=== PATIENT | male | born 1975 | race Caucasian/White ===

== ENCOUNTER → 2023-09-08 | Outpatient (CLI) | payer OTHER, SELFPAY ==
[2023-09-08 08:35] LABS: Absolute Lymphocyte Count 1.89 X10^3/uL (0.83-4.51); Absolute Neutrophil Count 2.7 X10^3/uL (2.0-7.7); Basophil# 0.05 X10^3/uL; Eosinophil# 0.11 X10^3/uL; Eosinophils% 2.1 % (0-5); Hematocrit 45.3 % (40-54); Hemoglobin 14.6 g/dL (13.0-16.5); Lymphocyte # 1.89 X10^3/ul (0.83-4.51); Lymphocyte % 36.7 % (19-41); Mean Corp Hgb Conc 32.2 g/dL (32-36); Mean Corpuscular Hgb 28.3 pg (27.0-32.0); Mean Corpuscular Volume 87.8 fL (80-94); Mean Platelet Vol. 9.8 fl (6.2-12.0); Monocyte# 0.37 X10^3/uL; Monocyte% 7.2 % (0-10); NRBC Flagged by Analyzer 0 % (0-5); Neutrophil % 52.4 % (47-70); Platelet Count 300 K/mm3 (150-450); RBC Distribution Width CV 11.9 % (11.6-14.6); RBC Distribution Width SD 38.6 fl (35.1-43.9); Red Blood Count 5.16 M/mm3 (4.6-6.2); White Blood Count 5.2 K/mm3 (4.4-11.0)
[2023-09-08 09:17] LABS: AST(SGOT) 22 U/L (15-37); Alanine Aminotransfer ALT/SGPT 27 U/L (16-61); Albumin, Serum 3.8 g/dL (3.2-5.0); Alkaline Phosphatase 71 U/L (45-117); Anion Gap 7 (5-15); BUN 15 mg/dL (7-18); BUN/Creat Ratio 12.5 RATIO (10-20); Calcium,Total 8.7 mg/dL (8.5-10.1); Chloride 109 mmol/L (98-107); Cholesterol 164 mg/dL (200); EST Glomerular Filtration Rate 69 mL/min (>60); Est Glom Filt Rate - Afr Amer 83 mL/min (>60); Globulin 3.7 g/dL (2.2-4.2); Glucose 91 mg/dL (74-106); High Density Lipoprotein 44 mg/dL; PSA,Total - Annual Screen 1.96 ng/mL (0.00-4.00); Potassium 4.1 mmol/L (3.5-5.1); Protein, Total 7.5 g/dL (6.4-8.2); Sodium Level 142 mmol/L (136-145); Triglycerides 110 mg/dL; Very Low Density Lipoprotein 22 mg/dL (5-40)
== END | disposition home or self-care (01) ==
LOC: LAB 07:42
PROVIDERS: PCP Family Medicine; Visit Provider Family Medicine
DX: Z00.00 Encounter for general adult medical examination without abnormal findings (principal); Z13.220 Encounter for screening for lipoid disorders; Z13.1 Encounter for screening for diabetes mellitus
CPT/HCPCS: 36415; 80053; 80061; 84153; 85025; G0103

== ENCOUNTER 2023-11-02 10:22 | Day surgery (SDC) | payer OTHER, SELFPAY ==
[2023-11-02] VITALS (8 sets, daily range): BP systolic 104–139; BP diastolic 69–99; PULSE 60–76; RESP 14–18; TEMP 36.1–36.4; O2SAT 94–100; BMI 26.2
[2023-11-02] MEDS: Lactated Ringers 1,000 ML 15 ML IV (10:30)
--- NOTE | 2023-11-02 11:12 | PCM.PRE.AN2 ---
ASA Classification* ASA Classification ASA Classification: 1 Assessment & Plan Anesthesia* Anesthesia Assessment Anesthesia Assessment: Discussed sedation and/or anesthesia options, risks, benefits, and alternatives with patient/parents/legal guardian/POA. Questions invited. The patient/parents/legal guardian/POA seems to understand and agrees to proceed with anesthesia plan. Reviewed the physical assessment, medical history, allergy history and patient home medications list prior to surgery/procedure/anesthetic and documented any changes. Performed airway and anesthesia risk assessments. Procedural Plan Procedural Plan:: Proceed w/ Anesthesia plan Anesthesia Type Anesthesia Type: MAC History Source History Obtained from:: Patient and Chart Anesthesia Focused Assessment* Temperature: 97.5 F Pulse Rate: 76 Blood Pressure: 139/99 Respiratory Rate: 16 Pulse Ox: 100 Oxygen Delivery Method: Room Air Airway Assessment Mouth opens: >3 cm Mallampati Score: II Teeth Condition: Intact Neck Range of motion (ROM): Full ROM Focused Labs Anesthesia Preop lab: CBC WBC 5.2 K/mm3 (4.4-11.0) 09/08/23 07:43 RBC 5.16 M/mm3 (4.6-6.2) 09/08/23 07:43 Hgb 14.6 g/dL (13.0-16.5) 09/08/23 07:43 Hct 45.3 % (40-54) 09/08/23 07:43 Plt Count 300 K/mm3 (150-450) 09/08/23 07:43 CHEMISTRY Potassium 4.1 mmol/L (3.5-5.1) 09/08/23 07:43 Sodium 142 mmol/L (136-145) 09/08/23 07:43 BUN 15 mg/dL (7-18) 09/08/23 07:43 Creatinine 1.20 mg/dL (0.70-1.30) 09/08/23 07:43 Glucose 91 mg/dL (74-106) 09/08/23 07:43 POC Glucose 103 mg/dL (70-110) 07/12/14 08:44 COAG Pre-Assessment Diagnosis/Proposed Procedure Planned Operative Procedure(s): CSCOPE OA Anesthesia History Anesthesia History - pediatric allergist: Anesthesia History - pediatric allergist Hx Hospitalization No 10/28/23 15:29 Any Problems With Anesthesia No 10/28/23 15:29 Cholinesterase deficiency No 10/28/23 15:29 You/Your Family Experience No 10/28/23 15:29 fever (hyperthermia) with Relationship Recent Exposure to Contagious No 11/02/23 10:48 Disease Does patient have nerve No 10/28/23 15:29 stimulator Patient instructed to have device shut off --Does patient have Pacemaker No 11/02/23 10:48 or ICD? When Was Last Pacemaker Check QUESTION #4 FULL TEXT: You/Your Family Experience fever (hyperthermia) with Anesthesia Last Oral Intake Last Oral intake: Last Oral Intake NPO since 00:00 11/02/23 10:48 Meds taken in AM with sips of water? Meds patient instructed to take am of surgery Any additional information?: Yes NPO since: 07:30 Meds patient instructed to take am of surgery: Prep was completed 730. PONV PONV - pediatric allergist: PONV - pediatric allergist Female No 10/28/23 15:29 HX of Motion Sickness No 10/28/23 15:29 HX of N/V After Surgery No 10/28/23 15:29 Non-Smoker Yes 10/28/23 15:29 Duration of Surgery greater No 10/28/23 15:29 than 60 minutes Number of Risk Factors 1 10/28/23 15:29 PONV Score Low Risk 10/28/23 15:29 Height & Weight Height & Weight: Anesthesia: Height & Weight Height 5 ft 11 in 11/02/23 10:48 Weight: 85.275 kg 11/02/23 10:48 Body Mass Index (BMI) 26.2 11/02/23 10:48 Respiratory Assessment Respiratory Assessment - pediatric allergist: Respiratory Tract Infection Hx - pediatric allergist Hx Respiratory Tract Infection No 10/28/23 15:29 STOP Sleep Apnea STOP Sleep Apnea - pediatric allergist: STOP Sleep Apnea - pediatric allergist Hx Hypertension No 10/28/23 15:29 Hx Sleep Apnea No 10/28/23 15:29 CPAP No 07/12/14 08:42 BIPAP No 07/10/14 16:38 Do you snore loudly (louder No 10/28/23 15:29 than talking or can be heard Do you often feel tired/ No 10/28/23 15:29 fatigued/ sleepy during daytime? Has anyone observed you stop No 10/28/23 15:29 breathing during sleep? STOP Results Negative 10/28/23 15:29 QUESTION #5 FULL TEXT : Do you snore loudly (louder than talking or can be heard through closed doors)? 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 Specify any problems Hx of Preganancy in last 3 N/A 10/28/23 15:29 Months Nurse Filling Out Transfusion DSCHRIBER 10/28/23 15:29 & Questions: Date: 10/28/23 10/28/23 15:29 Time: 15:30 10/28/23 15:29 Patient unable to answer at this time (ie. confused, unrespo /Reproduction History /Reproductive History - pediatric allergist: /Reproductive Hx- pediatric allergist Hx Now No 10/28/23 15:29 Gestational Age (in weeks): EDC: Hx Hx Para Hx Section SAB No 10/28/23 15:29 Active Medications Active Medications: Current Medications Generic Name Dose Route Start Last Admin Trade Name Freq PRN Reason Stop Dose Admin Lactated Ringer's 1,000 mls @ 15 mls/hr 11/02/23 10:30 11/02/23 10:30 IV 15 mls/hr .Q48H MARIO Administration PFSH Medical History Wears glasses Wears contact lenses Alcohol use Injury of head and neck Non-smoker Home Medications ?Medication ?Instructions ?Recorded ?Last Taken ?Type NK 10/28/23 Unknown History Allergy/AdvReac Type Severity Reaction Status Date / Time No Known Allergies Allergy Verified 11/02/23 10:48 Family History (Updated 10/12/23 @ 08:59 by Amy Méndez) Mother Colon cancer Grandfather Colon cancer Surgical History (Updated 10/28/23 @ 15:34 by Noemi Choi) Hx of hand surgery Social History (Updated 10/12/23 @ 09:02 by Amy Méndez) 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
--- NOTE | 2023-11-02 11:28 | HP.PCM_ITS ---
HPI - General HPI Narrative CLINT CAGE, is a 48 M who presents for screening colonoscopy. He has never had a colonoscopy in the past. He denies abdominal pain or blood in the stool. He reports that he does have family history of colon cancer in both grandfathers but no second or first-degree relatives. 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 Smoking Status: Never smoker details: Occasional alcohol substance use type: does not use Past Medical/Surgical History Planned Operation Planned Operative Procedure(s): CSCOPE OA S.O.S: No Previous Hospitalizations/Surgeries HX Hospitalizations: No HX of Surgeries: none Any Problems With Anesthesia: No You/Your Family Experience Fever (Hyperthermia) With Anes: No Cholinesterase deficiency: No Cardiovascular Hx Chest Pain within Last 2 months: No Hx of Irregular Heartbeat and/or Afib: No Hx Heart Attack: No Hx Congestive Heart Failure: No Hx Rheumatic Fever: No Hx Hypertension: No Hx Internal Defibrillator: No Hx Pacemaker: No Hx Cardiac Catheterization: No Hx Cardiac Surgery/Stents/Etc.: No Hx Stress Test: No Hx Pain in Legs when Walking/Leg Cramps: No Respiratory Chronic Cough: No HX of Shortness of Breath: No Hoarseness: No Hx Chronic Obstructive Pulmonary Disease (COPD): No Hx Asthma: No Hx Emphysema: No Hx Sleep Apnea: No CPAP: No BIPAP: No Hx Respiratory Tract Infection/Cold (presently): No Do You Snore Loudly (louder than talking or can be heard): No Do You Often Feel Tired/ Fatigued/ Sleepy Dring Daytime?: No Has Anyone Observed You Stop Breathing During Sleep?: No Result (for STOP score): Negative Hx Smoking: No Smoking Status: Never smoker Gastrointestinal Hx Gastrointestinal Disorders: No Hx Gastrointestinal Bleed: No Hx Ulcer: No Hx Hiatal Hernia: No Difficulty Chewing/Swallowing: No Special diet followed at home: No Hx Unplanned Weight Loss of 20#: No HX Unplanned Weight Gain of 20#: No Neurological Hx Seizures: No HX Syncope/Blackout Spells/Unconsciousness: No Hx Transient Ischemic Attacks (TIA): No Hx Multiple Sclerosis: No Hx Parkinson's Disease: No Hx Head/Neck Injury: Yes (concussion in high school) Hx Headaches: No Hx Back Injury/Pain: No Recent Onset of Speech Difficulty: No Restless Legs: No Does patient have nerve stimulator: No Blood Disorder Hx Leukemia: No Bleeding Tendencies: No Hx Deep Vein Thrombosis: No Hx High Cholesterol: No Blood Transmitted Disease: No Hx Hepatitis: No Hx Cirrhosis: No Hx Anemia: No Hx Blood Disorders: No Reproduction : No Is Patient Lactating: No Hx Hysterectomy: No Hx Tubal Ligation: No Are You Post Menopause: No Genitourinary Hx Renal Disease: No Musculoskeletal Hx Arthritis: No Hx Rheumatoid Arthritis: No Hx Gout: No Endocrine Hx Diabetes: No Thyroid Disease: No Hx Steroid Therapy: No Psycho/Social Hx Substance Use: No Hx Alcohol Use: No Hx Anxiety: No Hx Depression: No Mental Illness: No Hx Dementia: No Miscellaneous Hx Cancer: No Recent Exposure to Contagious Disease: No Hx of C-Diff: No Any Loose Teeth: No Allergies No Known Allergies Allergy (Verified 11/02/23 10:48) Discharge Is Pt Admitted From a Care Home, or a Prison: No After D/C, Where Do you Plan to Go: Return Home Vital Signs Vital Signs Vital Signs: 11/02/23 10:48 11/02/23 10:48 11/02/23 11:17 Temperature 97.5 F L 97.5 F L Temperature Source Temporal Pulse Rate 76 76 Respiratory Rate 16 16 Respiratory Pattern Normal Blood Pressure 139/99 H 139/99 H Blood Pressure Mean 112 Blood Pressure Source Monitor Blood Pressure Position Semi-Fowlers Blood Pressure Location Right Arm Pulse Ox 100 100 Oxygen Delivery Method Room Air Room Air Weight Weight: 188 lb Body Mass Index (BMI) 26.2 Physical Exam Const alert and oriented x3 HEENT normocephalic Eyes PERRL Resp normal respiratory effort and normal air movement Cardio regular rate and regular rhythm GI soft to palpation, non-tender and non-distended Extremity normal to inspection Assessment & Plan Assessment/Plan (1) Encounter for screening for malignant neoplasm of colon: PLAN: I explained endoscopy in detail to the patient. I explained the risks including but not limited to stroke or heart attack with anesthesia, perforation of the GI tract, bleeding, infection. I explained that any of these could necessitate further emergency surgery. The patient understands and all qu estions were answered sufficiently. The patient wishes to proceed with procedure. Vasyl Isidro MD Pager: [facility] [address] [place] [address] [address] [place] [address] Office: Surgery Risks - Colonoscopy Risks Include but are not Limited To: Risks include but are not limited to: Bleeding, perforation requiring further surgery, inability to complete colonoscopy requiring barium enema.
--- NOTE | 2023-11-02 12:00 | PCM.POST.ANE ---
Anesthesia: Postop Eval I Current Vital Signs Temperature: 97.2 F Pulse Rate: 74 Blood Pressure: 105/73 Respiratory Rate: 18 Pulse Ox: 97 Oxygen Delivery Method: Room Air Assessment Airway patent: Yes Spontaneous unlabored respirations: Yes nausea: No Vomiting: No Anesthesia Complication: No Fluid Hydration Crystalloid volume administer (ml): 500 Total IV fluid infused: 500 Progress Note Anesthesia document: Postop Eval 1 completed: Yes
--- NOTE | 2023-11-02 12:06 | OP.CCLET_ITS ---
11/02/2023 Kaci Fuchs Md Re : Colonoscopy procedure for Carson Mayberry Dear Shila This procedure was performed on Thursday, November 02, 2023. My impressions and recommendations are as follows: Impressions : - The entire examined colon is normal on direct and retroflexion views. - No specimens collected. Recommendations : - Discharge patient to home. - Resume previous diet. - Continue present medications. - Repeat colonoscopy in 10 years for screening purposes. My findings are described in the full procedure note, which is enclosed. If I can be of further assistance, please feel free to contact me at Doctor phone number(s): , Work: . Sincerely, Vasyl Isidro MD 11/02/2023 12:06:01 PM This report has been signed electronically.
--- NOTE | 2023-11-02 12:06 | OP.COLON_ITS ---
Patient Name: Carson Mayberry Procedure Date: 11/02/2023 11:33 AM Date of : 1975 Age: 48 Procedure: Colonoscopy Indications: Screening for colorectal malignant neoplasm Providers: Vasyl Isidro MD Medicines: Propofol per Anesthesia Patient Profile: This is a 48 year old male. Refer to note in patient chart for documentation of history and physical. Last Colonoscopy: none. The patient's first colonoscopy is today. Complications: No immediate complications. Procedure: Pre-Anesthesia Assessment: - Prior to the procedure, a History and Physical was performed, and patient medications and allergies were reviewed. The patient's tolerance of previous anesthesia was also reviewed. The risks and benefits of the procedure and the sedation options and risks were discussed with the patient. All questions were answered, and informed consent was obtained. Prior Anticoagulants: The patient has taken no anticoagulant or antiplatelet agents. After reviewing the risks and benefits, the patient was deemed in satisfactory condition to undergo the procedure. After I obtained informed consent, the scope was passed under direct vision. Throughout the procedure, the patient's blood pressure, pulse, and oxygen saturations were monitored continuously. The Colonoscope was introduced through the anus and advanced to the cecum, identified by appendiceal orifice and ileocecal valve. The colonoscopy was performed without difficulty. The patient tolerated the procedure well. The quality of the bowel preparation was good. The ileocecal valve, appendiceal orifice, and rectum were photographed. Scope In: 11:43:37 AM Scope Withdrawal Time 0 hours 5 minutes 28 seconds Scope Out: 11:56:53 AM Total Procedure Duration Time 0 hours 13 minutes 16 seconds Findings: The entire examined colon appeared normal on direct and retroflexion views. Impression: - The entire examined colon is normal on direct and retroflexion views. - No specimens collected. Recommendation: - Discharge patient to home. - Resume previous diet. - Continue present medications. - Repeat colonoscopy in 10 years for screening purposes. Procedure Code(s): --- Professional --- 29369, Colonoscopy, flexible; diagnostic, including collection of specimen(s) by brushing or washing, when performed (separate procedure) Diagnosis Code(s): --- Professional --- Z12.11, Encounter for screening for malignant neoplasm of colon CPT copyright 2021 [employer]. All rights reserved. The codes documented in this report are preliminary and upon grounds crew supervisor review may be revised to meet current compliance requirements. Vasyl Isidro MD 11/02/2023 12:06:01 PM This report has been signed electronically. Number of Addenda: 0 Note Initiated On: 11/02/2023 11:33 AM
--- NOTE | 2023-11-02 15:38 | PCM.POSTANE2 ---
Anesthesia Postop Eval I Sum Postop Eval Completion status Anesthesia document: Postop Eval 1 completed: Yes Anesthesia Postop Eval I Summary Anesthesia Postop Eval I Summary: Anesthesia Postop Eval I: Assessment Summary Airway patent Yes 11/02/23 12:05 [email or web address] Spontaneous unlabored Yes 11/02/23 12:05 [email or web address] respirations Mental status nausea No 11/02/23 12:05 [email or web address] Vomiting No 11/02/23 12:05 [email or web address] Anesthesia Postop Eval I: Fluid Summary Crystalloid volume administer 500 11/02/23 12:05 [email or web address] (ml) Colloids volume administered ( ml) Blood Product volume administered (ml) Total IV fluid infused 500 11/02/23 12:05 [email or web address] Anesthesia Postop Eval I: Summary Notes Anesthesia Complication No 11/02/23 12:05 [email or web address] Anesthesia Complication Comment: Post-operative progress note Anesthesia: Postop Eval II Evaluation Mental status: Awake and Calm Pain Level: 0 nausea: No Vomiting: No Complications Anesthesia Complication: No
== END 2023-11-02 12:39 | disposition home or self-care (01) ==
LOC: EN 10:24 → AC 10:25
PROVIDERS: PCP Family Medicine; Referring Provider Family Medicine; Visit Provider Surgery
PROC: 0DJD8ZZ Inspection of Lower Intestinal Tract, Via Natural or Artificial Opening Endoscopic (ICD-10-PCS; CPT 45378; principal; 2023-11-02 11:25)
DX: Z12.11 Encounter for screening for malignant neoplasm of colon (principal); Z80.0 Family history of malignant neoplasm of digestive organs
CPT/HCPCS: 45378; J7120; J2405